=== PATIENT | female | born 1975 | race Caucasian/White ===

== ENCOUNTER 2021-02-21 09:57 | Inpatient (IN) | payer MEDICARE, OTHER ==
[~2021-02-21] VITALS: Ht 152.4 cm; Wt 49.9 kg
[2021-02-21 12:01] LABS: HEMOGLOBIN 13.2 gm/dl (12.3-15.3); RED BLOOD COUNT 4.32 M/UL (4.00-5.10); WHITE BLOOD COUNT 6.2 K/UL (4.5-11.0)
[2021-02-21 12:19] LABS: BUN/CREATININE RATIO 17 (0-10)
[2021-02-21] MEDS ORDERED: LEVOTHYROXINE25 MCG PO (16:33)
[2021-02-21] MEDS ORDERED: AMLODIPINE BESY10 MG PO (16:33)
[2021-02-21] MEDS ORDERED: DRISDOL1250 MCG PO (16:34)
[2021-02-21] MEDS ORDERED: ZYRTEC10 MG PO (16:34)
[2021-02-21] MEDS ORDERED: MELATONIN10 M2 PO (16:34)
[2021-02-22 06:05] LABS: BUN/CREATININE RATIO 19 (0-10)
[2021-02-22 06:45] LABS: HEMOGLOBIN 12.4 gm/dl (12.3-15.3); RED BLOOD COUNT 4.08 M/UL (4.00-5.10); WHITE BLOOD COUNT 6.9 K/UL (4.5-11.0)
[2021-02-23 03:46] LABS: HEMOGLOBIN 12.2 gm/dl (12.3-15.3); RED BLOOD COUNT 4.07 M/UL (4.00-5.10); WHITE BLOOD COUNT 5.9 K/UL (4.5-11.0)
[2021-02-23 04:37] LABS: BUN/CREATININE RATIO 26 (0-10)
[2021-02-24 03:11] LABS: RED BLOOD COUNT 4.35 M/UL (4.00-5.10); WHITE BLOOD COUNT 6.7 K/UL (4.5-11.0)
[2021-02-24 03:47] LABS: BUN/CREATININE RATIO 29 (0-10)
[2021-02-24] MEDS ORDERED: DEXAMETHASONE2 MG PO (12:20)
[2021-02-24] MEDS ORDERED: BUDESONIDE0.5 MG/2 M NEB (12:20)
[2021-02-24] MEDS ORDERED: IPRAT-ALBUT 0.5-3 ML NEB (12:20)
[2021-02-24] MEDS ORDERED: DOXYCYCLINE HY100 M2 PO (12:20)
== END 2021-02-24 17:35 | disposition home or self-care (01) | DRG 177 ==
LOC: ER1 09:57 → CDU 15:15 → MED SURG 4 15:15
PROVIDERS: Emergency Medicine; Physician Assistant Medical; ADMIT Internal Medicine
PROC: 8E0ZXY6 Isolation (ICD-10-PCS; principal; 2021-02-21)
PROC: 3E0333Z Introduction of Anti-inflammatory into Peripheral Vein, Percutaneous Approach (ICD-10-PCS; 2021-02-21)
PROC: XW033E5 Introduction of Remdesivir Anti-infective into Peripheral Vein, Percutaneous Approach, New Technology Group 5 (ICD-10-PCS; 2021-02-21)
PROC: XW033G6 Introduction of REGN-COV2 Monoclonal Antibody into Peripheral Vein, Percutaneous Approach, New Technology Group 6 (ICD-10-PCS; 2021-02-21)
PROC: XW033H5 Introduction of Tocilizumab into Peripheral Vein, Percutaneous Approach, New Technology Group 5 (ICD-10-PCS; 2021-02-22)
PROC: B24BZZZ Ultrasonography of Heart with Aorta (ICD-10-PCS; 2021-02-22)
DX: U07.1 COVID-19 (principal); J96.01 Acute respiratory failure with hypoxia; J12.82 Pneumonia due to coronavirus disease 2019; E03.9 Hypothyroidism, unspecified; I27.20 Pulmonary hypertension, unspecified; F71 Moderate intellectual disabilities; Q74.8 Other specified congenital malformations of limb(s); Z79.899 Other long term (current) drug therapy; Z23 Encounter for immunization
CPT/HCPCS: ECHO; 36415; 36600; 71045; 71250; 80048; 80053; 81001; 82728; 82803; 83605; 83690; 83735; 83880; 84100; 85025; 85027; 85379; 86140; 87040; 93005; 93306; 94640; 94645; 94664; 94760; 96374; 96375; 99285; J0696; J1100; J1650; J1885; J1940; J2405; J7030; Q0249; U0002

== ENCOUNTER → 2021-07-25 | Outpatient (CLI) | payer MEDICARE, OTHER ==
[~2021-07-25] MED LIST: AMLODIPINE BESY10 MG PO; BUDESONIDE0.5 MG/2 M NEB; CEFUROXIME500 MG PO; DEXAMETHASONE2 MG PO; DOXYCYCLINE HY100 M2 PO; DRISDOL1250 MCG PO; HYDROCODON-ACE1 EAC4 PO; IPRAT-ALBUT 0.5-3 ML NEB; LEVOTHYROXINE25 MCG PO; MELATONIN10 M2 PO; ZYRTEC10 MG PO
== END ==
LOC: KOH-I 12:40
DX: M54.50 Low back pain, unspecified (principal); M54.2 Cervicalgia; M54.6 Pain in thoracic spine; M79.604 Pain in right leg; M79.605 Pain in left leg; M79.671 Pain in right foot; M79.672 Pain in left foot; R93.7 Abnormal findings on diagnostic imaging of other parts of musculoskeletal system; M47.812 Spondylosis without myelopathy or radiculopathy, cervical region; M47.814 Spondylosis without myelopathy or radiculopathy, thoracic region; M47.816 Spondylosis without myelopathy or radiculopathy, lumbar region
CPT/HCPCS: 72040; 72070; 72100; 72192; 73552; 73562; 73590; 73610; 73630

== ENCOUNTER → 2021-08-01 | Outpatient (CLI) | payer MEDICARE, OTHER | LOC: EMI 15:30 | DX: M25.551 Pain in right hip (principal); M25.451 Effusion, right hip | CPT/HCPCS: 73721 ==

== ENCOUNTER → 2021-11-08 | Outpatient (CLI) | payer MEDICARE, OTHER | LOC: KOH-I 16:01 | DX: M25.512 Pain in left shoulder (principal); M89.8X1 Other specified disorders of bone, shoulder | CPT/HCPCS: 73000; 73030 ==